=== PATIENT | male | born 1940 | race Caucasian/White ===

== ENCOUNTER 2017-09-17 06:51 | Day surgery (SDC) | payer MEDICARE, OTHER ==
[~2017-09-17 06:51] MED LIST: Lactated Ringers 1,000 ML IV SCH; Lidocaine 1%/Sod Bicarbonate in NS 8.4% 1 ML Syringe IV PRN; Sodium Chloride 0.9% 10 ML Syringe FLUSH PRN
--- NOTE | 2017-09-17 07:37 | PCM.PREANE ---
Preanesthetic Assessment - Anesthesia/Transfusion/Family Hx Anesthesia History: Prior Anesthesia Without Reaction Family History of Anesthesia Reaction: No Transfusion History: Prior Transfusion Without Reaction - Review of Systems General: No Symptoms Pulmonary: No Symptoms Cardiovascular: No Symptoms Gastrointestinal: Abdominal Pain Neurological: Numbness (hands) Other: Reports: Easy Bruising, Diabetes (152 this am check) - Physical Assessment NPO Status Date: 09/16/17 NPO Status Time: 22:30 O2 Sat by Pulse Oximetry: 94 Respiratory Rate: 16 Vital Signs: Last Vital Signs Temp 36.9 C 09/17/17 07:00 Pulse 64 09/17/17 07:00 Resp 16 09/17/17 07:00 BP 145/58 H 09/17/17 07:00 Pulse Ox 94 L 09/17/17 07:00 Height: 1.75 m Weight: 85.275 kg ASA Class: 3 Mental Status: Alert & Oriented x3 Airway Class: Mallampati = 1 Dentition: Reports: Normal Dentition, Missing Tooth/Teeth Thyro-Mental Finger Breadths: 3 Mouth Opening Finger Breadths: 3 ROM/Head Extension: Full Lungs: Clear to Auscultation, Normal Respiratory Effort Cardiovascular: Regular Rate, Regular Rhythm - Allergies Allergies/Adverse Reactions: Allergies Allergy/AdvReac Type Severity Reaction Status Date / Time niacin Allergy Hives Verified 09/16/17 15:56 [From Niaspan Extended-Release] quinine Allergy Anaphylactic Verified 09/16/17 15:56 Shock angiogram dye Allergy Anaphylactic Uncoded 09/16/17 15:56 Shock shellfish Allergy Swelling Uncoded 09/16/17 15:56 - Blood Blood Available: No Product(s) Available: None - Anesthesia Plan Pre-Op Medication Ordered: Beta Roxy Beta Roxy: Other (Coreg) Med Last Dose Date: 09/17/17 Med Last Dose Time: 05:30 - Acknowledgements Anesthesia Type Planned: MAC Pt an Appropriate Candidate for the Planned Anesthesia: Yes Alternatives and Risks of Anesthesia Discussed w Pt/Guardian: Yes Pt/Guardian Understands and Agrees with Anesthesia Plan: Yes PreAnesthesia Questionnaire HEENT History: Reports: Cataract Cardiovascular History: Reports: CAD, High Cholesterol, Hypertension, Stents, Other (See Below) Other Cardiovascular History: peripheral artery disease Respiratory History: Reports: None Gastrointestinal History: Reports: GERD, Hiatal Hernia, Other (See Below) Other Gastrointestinal History: hematochezia, rectal pain Genitourinary History: Reports: None 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 Other Musculoskeletal History: low back pain, lumbar degnerative disc disease, left hand fracture Neurological History: Reports: Other (See Below) Other Neuro History: cerebral vascular disease Psychiatric History: Reports: None Endocrine/Metabolic History: Reports: Diabetes, Type II Hematologic History: Reports: None Immunologic History: Reports: None Oncologic (Cancer) History: Reports: None Dermatologic History: Reports: None - Past Surgical History Head Surgeries/Procedures: Reports: None HEENT Surgical History: Reports: Adenoidectomy, Cataract Surgery, Naso-Sinus Surgery, Tonsillectomy Other HEENT Surgeries/Procedures: Detached Retina-left eye Cardiovascular Surgical History: Reports: Coronary Artery Bypass Other Cardiovascular Surgeries/Procedures: x5 stents Respiratory Surgical History: Reports: None GI Surgical History: Reports: Colonoscopy, EGD Female Surgical History: Reports: Breast Implant Male Surgical History: Reports: None Endocrine Surgical History: Reports: None Neurological Surgical History: Reports: None Oncologic Surgical History: Reports: None Dermatological Surgical History: Reports: None - SUBSTANCE USE Smoking Status *Q: Former Smoker Second Hand Smoke Exposure: No Days Per Week of Alcohol Use: 0 Recreational Drug Use History: No - HOME MEDS Home Medications: Home Meds Carvedilol 12.5 mg PO BID 03/28/15 [History] Clopidogrel [Plavix] 75 mg PO DAILY 03/28/15 [History] Colesevelam HCl [Welchol] 1,250 mg PO BID 03/28/15 [History] Flaxseed Oil [Flaxseed] 1,000 mg PO DAILY 03/28/15 [History] Fluticasone/Salmeterol [Advair Diskus 250-50] 1 puff INH BID 03/28/15 [History] Furosemide 40 mg PO DAILY 03/28/15 [History] Isosorbide Mononitrate [Isosorbide Mononitrate ER] 60 mg PO BID 03/28/15 [ History] Lisinopril 20 mg PO DAILY 03/28/15 [History] Pantoprazole [ProTONIX] 40 mg PO DAILY PRN 03/28/15 [History] atorvaSTATin [Lipitor] 80 mg PO DAILY 03/28/15 [History] glipiZIDE [Glipizide ER] 10 mg PO BEDTIME 03/28/15 [History] Acetaminophen/Diphenhydramine [Tylenol Pm Ex-Strength Caplet] 2 tab PO BEDTIME 09/16/17 [History] Aspirin [Halfprin] 81 mg PO DAILY 09/16/17 [History] Insuln Asp Prot/Insulin Aspart [NovoLOG Mix 70-30] 25 units SQ BID 09/16/17 [ History] Insuln Asp Prot/Insulin Aspart [NovoLOG Mix 70-30] 50 units SQ BEDTIME 09/16/17 [History] Melatonin 10 mg PO BEDTIME 09/16/17 [History] Nitroglycerin [Nitrostat] 0.4 mg SL Q5M PRN 09/16/17 [History] amLODIPine [Norvasc] 2.5 mg PO DAILY 09/16/17 [History] - CURRENT (IN HOUSE) MEDS Current Meds: Current Medications Lactated Ringer's (Ringers, Lactated) 1,000 mls @ 125 mls/hr IV ASDIRECTED RILEY Stop: 09/17/17 18:00 Last Admin: 09/17/17 07:15 Dose: 125 mls/hr Lidocaine/Sodium Bicarbonate (Buffered Lidocaine 1% In Ns 8.4%) 0.25 ml IV ONETIME PRN PRN Reason: Prior to IV Start Stop: 09/17/17 18:00 Last Admin: 09/17/17 07:15 Dose: 0.25 ml Sodium Chloride (Saline Flush) 10 ml FLUSH ASDIRECTED PRN PRN Reason: Keep Vein Open Stop: 09/17/17 18:00
--- NOTE | 2017-09-17 07:39 | PCM.HP ---
H&P History of Present Illness - General Date of Service: 09/17/17 Source of Information: Patient History Limitations: Reports: No Limitations - History of Present Illness Initial Comments - Free Text/Narative: 77 year old male with hematochezia and rectal pain x 6 months. His last colonoscopy was in 2009 and was normal. He has no family history of colon cancer. He has chronic stable CAD with cardiology following. He has no chest pain. His last cardiac stenting was in 2012. His latest echocardiogram was in 2015 and shows preserved EF 60-65%. - Related Data Allergies/Adverse Reactions: Allergies Allergy/AdvReac Type Severity Reaction Status Date / Time niacin Allergy Hives Verified 09/16/17 15:56 [From Niaspan Extended-Release] quinine Allergy Anaphylactic Verified 09/16/17 15:56 Shock angiogram dye Allergy Anaphylactic Uncoded 09/16/17 15:56 Shock shellfish Allergy Swelling Uncoded 09/16/17 15:56 Home Medications: Home Meds Carvedilol 12.5 mg PO BID 03/28/15 [History] Clopidogrel [Plavix] 75 mg PO DAILY 03/28/15 [History] Colesevelam HCl [Welchol] 1,250 mg PO BID 03/28/15 [History] Flaxseed Oil [Flaxseed] 1,000 mg PO DAILY 03/28/15 [History] Fluticasone/Salmeterol [Advair Diskus 250-50] 1 puff INH BID 03/28/15 [History] Furosemide 40 mg PO DAILY 03/28/15 [History] Isosorbide Mononitrate [Isosorbide Mononitrate ER] 60 mg PO BID 03/28/15 [ History] Lisinopril 20 mg PO DAILY 03/28/15 [History] Pantoprazole [ProTONIX] 40 mg PO DAILY PRN 03/28/15 [History] atorvaSTATin [Lipitor] 80 mg PO DAILY 03/28/15 [History] glipiZIDE [Glipizide ER] 10 mg PO BEDTIME 03/28/15 [History] Acetaminophen/Diphenhydramine [Tylenol Pm Ex-Strength Caplet] 2 tab PO BEDTIME 09/16/17 [History] Aspirin [Halfprin] 81 mg PO DAILY 09/16/17 [History] Insuln Asp Prot/Insulin Aspart [NovoLOG Mix 70-30] 25 units SQ BID 09/16/17 [ History] Insuln Asp Prot/Insulin Aspart [NovoLOG Mix 70-30] 50 units SQ BEDTIME 09/16/17 [History] Melatonin 10 mg PO BEDTIME 09/16/17 [History] Nitroglycerin [Nitrostat] 0.4 mg SL Q5M PRN 09/16/17 [History] amLODIPine [Norvasc] 2.5 mg PO DAILY 09/16/17 [History] Past Medical History HEENT History: Reports: Cataract Cardiovascular History: Reports: CAD, High Cholesterol, Hypertension, Stents, Other (See Below) Other Cardiovascular History: peripheral artery disease Respiratory History: Reports: None Gastrointestinal History: Reports: GERD, Hiatal Hernia, Other (See Below) Other Gastrointestinal History: hematochezia, rectal pain Genitourinary History: Reports: None 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 Other Musculoskeletal History: low back pain, lumbar degnerative disc disease, left hand fracture Neurological History: Reports: Other (See Below) Other Neuro History: cerebral vascular disease Psychiatric History: Reports: None Endocrine/Metabolic History: Reports: Diabetes, Type II Hematologic History: Reports: None Immunologic History: Reports: None Oncologic (Cancer) History: Reports: None Dermatologic History: Reports: None - Past Surgical History Head Surgeries/Procedures: Reports: None HEENT Surgical History: Reports: Adenoidectomy, Cataract Surgery, Naso-Sinus Surgery, Tonsillectomy Other HEENT Surgeries/Procedures: Detached Retina-left eye Cardiovascular Surgical History: Reports: Coronary Artery Bypass Other Cardiovascular Surgeries/Procedures: x5 stents Respiratory Surgical History: Reports: None GI Surgical History: Reports: Colonoscopy, EGD Female Surgical History: Reports: Breast Implant Male Surgical History: Reports: None Endocrine Surgical History: Reports: None Neurological Surgical History: Reports: None Oncologic Surgical History: Reports: None Dermatological Surgical History: Reports: None Social & Family History - Tobacco Use Smoking Status *Q: Former Smoker Years of Tobacco use: 9 Used Tobacco, but Quit: Yes Month Tobacco Last Used: 04/1969 Second Hand Smoke Exposure: No - Alcohol Use Days Per Week of Alcohol Use: 0 - Recreational Drug Use Recreational Drug Use: No H&P Review of Systems - Review of Systems: Review Of Systems: See Below Pulmonary: Reports: Shortness of Breath Cardiovascular: Reports: No Symptoms Gastrointestinal: Reports: Hematochezia Genitourinary: Reports: No Symptoms Exam - Exam Exam: See Below - Vital Signs Vital Signs: Last Vital Signs Temp 36.9 C 09/17/17 07:00 Pulse 64 09/17/17 07:00 Resp 16 09/17/17 07:00 BP 145/58 H 09/17/17 07:00 Pulse Ox 94 L 09/17/17 07:00 Weight: 85.275 kg - Exam General: Alert, Oriented Lungs: Clear to Auscultation, Normal Respiratory Effort Cardiovascular: Regular Rate, Regular Rhythm GI/Abdominal Exam: Normal Bowel Sounds, Soft, Non-Tender *Q Meaningful Use (ADM) - VTE *Q VTE Criteria *Q: - Stroke *Q Stroke Criteria *Q: - AMI *Q AMI Criteria *Q: - Problem List (1) Hematochezia SNOMED Code(s): 450403968 ICD Code: K92.1 - MELENA Status: Acute Current Visit: Yes (2) Rectal pain SNOMED Code(s): 98623781 ICD Code: K62.89 - OTHER SPECIFIED DISEASES OF ANUS AND RECTUM Status: Acute Current Visit: Yes Problem List Initiated/Reviewed/Updated: Yes Orders Last 24hrs: Active Orders 24 hr Category Date Time Status Peripheral IV Care [RC] . DIRECTED Care 09/17/17 00:01 Active Verify Patient Consent Obtain [RC] ASDIRECTED Care 09/17/17 00:01 Active Lactated Ringers [Ringers, Lactated] 1,000 ml Med 09/17/17 00:01 Active IV ASDIRECTED Lidocaine 1%/Sod Bicarbonate [Buffered Lidocaine 1% in Med 09/17/17 00:01 Active NS 8.4%] 0.25 ml IV ONETIME PRN Sodium Chloride 0.9% [Saline Flush] Med 09/17/17 00:01 Active 10 ml FLUSH ASDIRECTED PRN Medication Administration Instruction [OM.PC] Routine Oth 09/17/17 00:01 Ordered Peripheral IV Insertion Adult [OM.PC] Routine Oth 09/17/17 00:01 Ordered Medication Orders Lactated Ringer's (Ringers, Lactated) 1,000 mls @ 125 mls/hr IV ASDIRECTED RILEY Stop: 09/17/17 18:00 Last Admin: 09/17/17 07:15 Dose: 125 mls/hr Lidocaine/Sodium Bicarbonate (Buffered Lidocaine 1% In Ns 8.4%) 0.25 ml IV ONETIME PRN PRN Reason: Prior to IV Start Stop: 09/17/17 18:00 Last Admin: 09/17/17 07:15 Dose: 0.25 ml Sodium Chloride (Saline Flush) 10 ml FLUSH ASDIRECTED PRN PRN Reason: Keep Vein Open Stop: 09/17/17 18:00 Assessment/Plan Comment:: Proceed with diagnostic colonoscopy for evaluation of hematochezia and rectal pain. Risks and benefits discussed. Risks include perforation, inability to reach cecum and risks of anesthesia.
[2017-09-17] MEDS ORDERED: Propofol 200 MG/20 ML SDV ONE (08:07)
[2017-09-17] MEDS ORDERED: fentaNYL 100 MCG/2 ML SDV ONE (08:07)
[2017-09-17] MEDS ORDERED: Lidocaine 1% 4 ML ONE (08:09)
--- NOTE | 2017-09-17 08:15 | PCM.OPNOTE ---
- General Post-Op/Procedure Note Date of Surgery/Procedure: 09/17/17 Operative Procedure(s): Colonoscopy with cold forceps biopsy Findings: 3 mm ascending colon polyp, internal hemorrhoids Pre Op Diagnosis: Hematochezia, Proctodynia Post-Op Diagnosis: 3 mm ascending colon polyp, internal hemorrhoids Anesthesia Technique: MAC Primary Surgeon: Dave Rodriguez Anesthesia Provider: Olegario Mares EBL in mLs: 5 Complications: None Condition: Good Free Text/Narrative:: After patient gave verbal and written consent he was placed on blood pressure and pulse ox monitoring. He was given iv sedation which he tolerated well. The olympus colonoscope was inserted per rectum and advanced to the cecum without difficulty. The ileocecal valve and appendiceal orfice were imaged documenting cecal intubation. The colonoscope was slowly withdrawn. The prep was good. The views were good. A small 3 mm sessile ascending colon polyp was noted and removed with cold forceps biopsy. This was retrieved. There was good hemostasis. The scope was retroflexed in the rectum and internal hemorrhoids were noted. The patient tolerated the procedure well, there were no complications.
[2017-09-17 08:21] VITALS: BP 123/54
[2017-09-17] MEDS ORDERED: ePHEDrine 50 MG/ML SDV ONE (08:26)
== END 2017-09-17 08:47 | disposition home or self-care (01) ==
LOC: JD.SDS 06:51
PROVIDERS: ATTEND Family Medicine
DX: D12.2 Benign neoplasm of ascending colon (principal); K64.8 Other hemorrhoids; I25.10 Atherosclerotic heart disease of native coronary artery without angina pectoris; I10 Essential (primary) hypertension; E11.9 Type 2 diabetes mellitus without complications; I73.9 Peripheral vascular disease, unspecified; E78.00 Pure hypercholesterolemia, unspecified; Z88.8 Allergy status to other drugs, medicaments and biological substances; Z91.041 Radiographic dye allergy status; Z91.013 Allergy to seafood; Z79.82 Long term (current) use of aspirin; Z79.4 Long term (current) use of insulin; Z79.899 Other long term (current) drug therapy; Z90.49 Acquired absence of other specified parts of digestive tract; Z95.5 Presence of coronary angioplasty implant and graft; Z87.891 Personal history of nicotine dependence
CPT/HCPCS: 45380; J3010; J7120; 00810; 88305; J2704

== ENCOUNTER 2018-03-25 20:27 | Emergency (ER) | payer MEDICARE, OTHER ==
[2018-03-25 20:33] VITALS: BP 161/6
[2018-03-26] MEDS ORDERED: Orphenadrine 100 MG Tab.ER PO STA (00:49)
--- NOTE | 2018-03-26 00:56 | EDM.PDOC ---
ED HPI GENERAL MEDICAL PROBLEM - General Chief Complaint: Cardiovascular Problem Stated Complaint: [facility] Time Seen by Provider: 03/25/18 21:49 Source of Information: Reports: Patient, Family (Son) History Limitations: Reports: No Limitations - History of Present Illness INITIAL COMMENTS - FREE TEXT/NARRATIVE: The patient states that he had 7 teeth extracted, followed by maxillary bone shaping and 5 dental implants placed this past 03/18/2018. The patient is on Plavix, which he did not hold prior to the procedure, although he did hold this past Wednesday and Wednesday, 03/19/2018 and 03/20/2018. He resume the Plavix 03/21/2018. The patient reports increased urine output this past Wednesday, Wednesday, and Wednesday, 03/21/2018 through 03/23/2018, but none yesterday or today. He acknowledges that he had increased his fluid intake around that time, as requested by his oral surgeon. The patient states that he developed bilateral thigh cramps yesterday and today. He called the paramedics, and for reasons unclear, they checked an ECG even though the patient was not complaining of chest pain, dyspnea, or palpitations. According to the patient, the paramedics found some problem with the ECG and recommended that he come to the ED. The patient has a history of insulin requiring diabetes. Because he has been on a liquid diet since his oral surgery, he has decreased his insulin dosage. No recent fever, nausea, vomiting, or diarrhea. He reports recent constipation secondary to taking narcotic pain relievers. He also reports that he is on an antibiotic, but does not know its name. The patient's PCP is Dr. Silvio Culver. - Related Data Allergies Allergy/AdvReac Type Severity Reaction Status Date / Time niacin Allergy Hives Verified 09/16/17 15:56 [From Niaspan Extended-Release] quinine Allergy Anaphylactic Verified 09/16/17 15:56 Shock angiogram dye Allergy Anaphylactic Uncoded 09/16/17 15:56 Shock shellfish Allergy Swelling Uncoded 09/16/17 15:56 Home Meds: Home Meds Carvedilol 12.5 mg PO BID 03/28/15 [History] Clopidogrel [Plavix] 75 mg PO DAILY 03/28/15 [History] Colesevelam HCl [Welchol] 1,875 mg PO BID 03/28/15 [History] Flaxseed Oil [Flaxseed] 1,000 mg PO DAILY 03/28/15 [History] Fluticasone/Salmeterol [Advair Diskus 250-50] 1 puff INH BID 03/28/15 [History] Furosemide 40 mg PO DAILY 03/28/15 [History] Isosorbide Mononitrate [Isosorbide Mononitrate ER] 60 mg PO BID 03/28/15 [ History] Lisinopril 20 mg PO DAILY 03/28/15 [History] Pantoprazole [ProTONIX] 40 mg PO DAILY PRN 03/28/15 [History] atorvaSTATin [Lipitor] 80 mg PO DAILY 03/28/15 [History] glipiZIDE [Glipizide ER] 10 mg PO BEDTIME 03/28/15 [History] Acetaminophen/Diphenhydramine [Tylenol Pm Ex-Strength Caplet] 2 tab PO BEDTIME 09/16/17 [History] Aspirin [Halfprin] 81 mg PO DAILY 09/16/17 [History] Insuln Asp Prot/Insulin Aspart [NovoLOG Mix 70-30] 25 units SQ BID 09/16/17 [ History] Insuln Asp Prot/Insulin Aspart [NovoLOG Mix 70-30] 50 units SQ BEDTIME 09/16/17 [History] Melatonin 10 mg PO BEDTIME 09/16/17 [History] Nitroglycerin [Nitrostat] 0.4 mg SL Q5M PRN 09/16/17 [History] amLODIPine [Norvasc] 2.5 mg PO DAILY 09/16/17 [History] Triamcinolone Acetonide [Triamcinolone Acetonide 0.1% Crm] 1 dose TOP BID [History] Orphenadrine [Norflex] 1 tab PO Q12H PRN #10 tab.er 03/26/18 [Rx] Past Medical History HEENT History: Reports: Impaired Vision Other HEENT History: Wears glasses Cardiovascular History: Reports: CAD, High Cholesterol, Hypertension, DC (2011) , PVD Gastrointestinal History: Reports: GERD, Hiatal Hernia Musculoskeletal History: Reports: Back Pain, Chronic (lumbar DDD), Fracture ( left hand) Endocrine/Metabolic History: Reports: Diabetes, Type II - Past Surgical History HEENT Surgical History: Reports: Adenoidectomy, Cataract Surgery (bilateral), Detached Retina (left), Naso-Sinus Surgery, Oral Surgery, Tonsillectomy Cardiovascular Surgical History: Reports: Coronary Artery Bypass (x 4 vessel 1995), Coronary Artery Stent (x 5) GI Surgical History: Reports: Colonoscopy, EGD Musculoskeletal Surgical History: Reports: Arthroscopic Knee (left knee) Social & Family History - Tobacco Use Smoking Status *Q: Former Smoker Month/Year Tobacco Last Used: Quit 1968 - Alcohol Use Alcohol Use History: Yes Alcohol Use Frequency: Socially - Recreational Drug Use Recreational Drug Use: No - Living Situation & Occupation Living situation: Reports: , with Spouse Occupation: Retired ED ROS GENERAL - Review of Systems Review Of Systems: ROS reveals no pertinent complaints other than HPI. ED EXAM, GENERAL - Physical Exam Exam: See Below Exam Limited By: No Limitations General Appearance: Alert, WD/WN, No Apparent Distress Eye Exam: Bilateral Eye: Normal Inspection Ears: Normal External Exam, Hearing Grossly Normal Nose: Normal Inspection, No Blood Throat/Mouth: Normal Inspection, Normal Lips, Normal Voice, No Airway Compromise Head: Atraumatic, Normocephalic Neck: Full Range of Motion, Other (Ecchymosis noted to the anterior neck, extending to the upper midline chest) Respiratory/Chest: No Respiratory Distress, Lungs Clear, Normal Breath Sounds, No Accessory Muscle Use Cardiovascular: Normal Peripheral Pulses, Regular Rate, Rhythm, No Gallop, No JVD, No Murmur, No Rub Peripheral Pulses: 4+: Radial (L), Radial (R) GI/Abdominal: Normal Bowel Sounds, Soft, Non-Tender, No Organomegaly, No Distention, No Abnormal Bruit, No Mass (Male) Exam: Deferred Rectal (Males) Exam: Deferred Back Exam: Normal Inspection, Full Range of Motion, NT Extremities: Normal Inspection, Normal Range of Motion, Normal Capillary Refill , Other (1+ bilateral pretibial edema) Neurological: Alert, Oriented, Normal Cognition, No Motor/Sensory Deficits Psychiatric: Normal Affect Skin Exam: Warm, Dry, Intact, Normal Color, No Rash EKG INTERPRETATION EKG Date: 03/25/18 Time: 22:08 Rhythm: NSR Rate (Beats/Min): 61 [place]: Normal P-Wave: Present (1st degree AVB) QRS: Wide (Nonspecific intraventricular conduction delay) ST-T: Normal QT: Normal Comparison: No Change (03/28/2015) Course - Vital Signs Last Recorded V/S: Last Vital Signs Temp 36.6 C 03/25/18 20:31 Pulse 62 03/25/18 20:31 Resp 16 03/25/18 20:31 BP 161/6 H 03/25/18 20:31 Pulse Ox 95 03/25/18 20:31 - Orders/Labs/Meds Orders: Active Orders 24 hr Category Date Time Status EKG Documentation Completion [RC] STAT Care 03/25/18 22:03 Active UA W/MICROSCOPIC [URIN] Stat Lab 03/25/18 22:20 Ordered Labs: Laboratory Tests 03/25/18 03/25/18 03/25/18 Range/Units 22:18 22:18 22:20 WBC 10.88 H (4.23-9.07) K/mm3 RBC 4.15 L (4.63-6.08) M/mm3 Hgb 13.1 L (13.7-17.5) gm/L Hct 39.5 L (40.1-51.0) % MCV 95.2 H (79.0-92.2) fl MCH 31.6 (25.7-32.2) pg MCHC 33.2 (32.2-35.5) g/dl RDW Std Deviation 49.3 H (35.1-43.9) fL Plt Count 283 (163-337) K/mm3 MPV 10.6 (9.4-12.3) fl Neutrophils % (Manual) 61 H (40-60) % Band Neutrophils % 0 (0-10) % Lymphocytes % (Manual) 24 (20-40) % Atypical Lymphs % 0 % Monocytes % (Manual) 13 H (2-10) % Eosinophils % (Manual) 1 (0.8-7.0) % Basophils % (Manual) 0 L (0.2-1.2) Myelocytes % 1 Toxic Granulation Few Platelet Estimate Adequate Plt Morphology Comment Normal Poikilocytosis 1+ slight Anisocytosis 1+ slight Microcytosis 1+ slight Macrocytosis 1+ slight Target Cells 1+ slight Tear Drop Cells 1+ slight Ovalocytes 1+ slight RBC Morph Comment Abnormal Sodium 138 (136-145) mEq/L Potassium 4.4 (3.5-5.1) mEq/L Chloride 104 (98-107) mEq/L Carbon Dioxide 29 (21-32) mEq/L Anion Gap 9.4 (5-15) BUN 23 H (7-18) mg/dL Creatinine 1.1 (0.7-1.3) mg/dL Est Cr Clr Drug Dosing 57.13 mL/min Estimated GFR (MDRD) > 60 (>60) mL/min BUN/Creatinine Ratio 20.9 H (14-18) Glucose 74 L (83-115) mg/dL Calcium 9.2 (8.5-10.1) mg/dL Magnesium 2.1 (1.8-2.4) mg/dl Total Bilirubin 0.4 (0.2-1.0) mg/dL AST 23 (15-37) U/L ALT 34 (16-63) U/L Alkaline Phosphatase 92 (46-116) U/L Troponin I 0.024 (0.00-0.056) ng/mL Total Protein 6.9 (6.4-8.2) g/dl Albumin 3.3 L (3.4-5.0) g/dl Globulin 3.6 gm/dL Albumin/Globulin Ratio 0.9 L (1-2) Urine Color Yellow (Yellow) Urine Appearance Clear (Clear) Urine pH 6.5 (5.0-8.0) Ur Specific [place] 1.020 (1.005-1.030) Urine Protein Negative (Negative) Urine Glucose (UA) Negative (Negative) Urine Ketones Negative (Negative) Urine Occult Blood Trace-intact H (Negative) Urine Nitrite Negative (Negative) Urine Bilirubin Negative (Negative) Urine Urobilinogen 0.2 (0.2-1.0) Ur Leukocyte Esterase Negative (Negative) Urine RBC 0-5 (0-5) /hpf Urine WBC 0-5 (0-5) /hpf Ur Epithelial Cells 0-5 (0-5) /hpf Urine Bacteria Not seen (FEW) /hpf Urine Mucus Not seen (FEW) /hpf Meds: Medications Discontinued Medications Generic Name Dose Route Start Last Admin Trade Name Freq PRN Reason Stop Dose Admin Orphenadrine Citrate 100 mg 03/26/18 00:49 03/26/18 00:54 Norflex PO 03/26/18 00:50 100 mg ONETIME STA Administration - Re-Assessments/Exams Free Text/Narrative Re-Assessment/Exam: 03/26/18 00:49 Accu-Chek shortly after arrival was 67. The patient was given juice. Test results discussed with the patient and his son. Zaid's workup is unremarkable. No significant electrolyte abnormalities. The patient's ECG, the main reason why he was sent to the ED by EMS, is grossly normal, with the exception of a first-degree AV block. There are no ischemic changes, and his QTc is within normal limits. I don't know what the paramedics saw, but I do not see anything of concern here. It is commonly believed that muscle cramps are due to an electrolyte abnormality , however, there is no evidence for that, and this patient is a good example. His electrolytes are normal, yet he has muscle cramps. I am recommending that we give him a trial of Norflex, to see if that helps. The patient is agreeable. Departure - Departure Time of Disposition: 00:51 Disposition: Home, Self-Care 01 Condition: Good Clinical Impression: Thigh cramp - Discharge Information Prescriptions: Orphenadrine [Norflex] 1 tab PO Q12H PRN #10 tab.er PRN Reason: Muscle Spasm Instructions: Leg Cramps Referrals: Silvio Culver Jr, MD [Primary Care Provider] - Forms: ED Department Discharge Additional Instructions: You were seen in the emergency room for thigh cramps, an abnormal ECG by the paramedics, and increased urine output earlier this week. Workup in the ER included blood work, a urinalysis, and an ECG. Your entire workup was unremarkable. Your ECG, while not completely normal, has no concerning findings. Your electrolytes are normal. You are not dehydrated. You have not suffered a heart attack. You do not have a urinary tract infection. The cause of muscle cramps is not known, but does not appear to be related to any significant medical abnormality. You have been started on the muscle relaxant Norflex. A prescription for Norflex has been sent to the [facility] located in the [employer] store. Take one tablet every 12 hours, as prescribed. You may also take [id number] ibuprofen as needed for discomfort. Follow-up with your PCP, Dr. Silvio Culver, this coming week. If any other problems, please do not hesitate to return to the ER. - My Orders Last 24 Hours: My Active Orders 03/25/18 22:03 EKG Documentation Completion [RC] STAT 03/25/18 22:20 UA W/MICROSCOPIC [URIN] Stat - Assessment/Plan Last 24 Hours: My Active Orders 03/25/18 22:03 EKG Documentation Completion [RC] STAT 03/25/18 22:20 UA W/MICROSCOPIC [URIN] Stat
== END 2018-03-26 01:04 | disposition home or self-care (01) ==
LOC: JD.ED 20:27 → SUPCPDRO 20:27 → JD.ED 03-26 01:04
DX: R25.2 Cramp and spasm (principal); E78.00 Pure hypercholesterolemia, unspecified; I10 Essential (primary) hypertension; I25.2 Old myocardial infarction; K21.9 Gastro-esophageal reflux disease without esophagitis; E11.9 Type 2 diabetes mellitus without complications; Z88.1 Allergy status to other antibiotic agents; Z91.013 Allergy to seafood; Z88.8 Allergy status to other drugs, medicaments and biological substances; Z91.041 Radiographic dye allergy status; Z79.4 Long term (current) use of insulin; Z79.899 Other long term (current) drug therapy; Z87.891 Personal history of nicotine dependence
CPT/HCPCS: 36415; 80053; 81001; 83735; 84484; 85007; 85027; 93005; 99285; A9270; 82962

== ENCOUNTER 2021-05-08 07:16 | Emergency (ER) | payer MEDICARE, OTHER ==
--- NOTE | 2021-05-08 07:39 | EDM.PDOC ---
ED HPI GENERAL MEDICAL PROBLEM - General Chief Complaint: Neuro Symptoms/Deficits Stated Complaint: SLIGHT HEADACHE X 2DAYS /LOSS OF BALANCE TODAY Time Seen by Provider: 05/08/21 07:27 Source of Information: Reports: Patient History Limitations: Reports: No Limitations - History of Present Illness INITIAL COMMENTS - FREE TEXT/NARRATIVE: 81-year-old male presents to the ED feeling off balance with reported diffuse mild headache for the last 2 days. No known head trauma. History suggest that he is listing to both sides not to one side. Hard to get a good history of vertigo or spinning sensation. He states he just feels off balance. 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 Prior to that he just used to use medications. This morning he awoke with diaphoresis and the bed disheveled. He checked his blood sugar was 57. The history would suggest that he likely experienced a hypoglycemic episode this morning. No nausea or vomiting. He did take all of his normal medications this morning. This includes insulin. Appetite has been good. No diarrhea no nausea or vomiting. No visual acuity changes. Patient wears glasses most of the time with tinted lenses as his eyes are very sensitive to light. Onset: Gradual, Unknown/Unsure (Patient has felt off balance for the last 2 to 3 days.) Onset Date: 05/05/21 Duration: Day(s):, Waxing/Waning Location: Reports: Generalized (Generalized feeling of feeling off balance having to take an extra step but no definitive evidence of vertigo.) Quality: Reports: Other (With mild headache) Severity: Moderate Improves with: Reports: Rest Worsens with: Reports: Other (Symptoms are only noticed while walking. At rest he is fine.) Context: Denies: Activity, Exercise, Lifting, Sick Contact, Trauma, Other Associated Symptoms: Reports: Malaise. Denies: No Other Symptoms, Confusion, Chest Pain, Cough, cough w sputum, Diaphoresis, Fever/Chills, Headaches, Loss of Appetite, Nausea/Vomiting, Rash, Seizure, Shortness of Breath, Syncope, Weakness Treatments MUSICAL THERAPIST: Reports: Other (see below) - Related Data Allergies Allergy/AdvReac Type Severity Reaction Status Date / Time niacin Allergy Hives Verified 05/08/21 07:26 [From Niaspan Extended-Release] quinine Allergy Anaphylactic Verified 05/08/21 07:26 Shock angiogram dye Allergy Anaphylactic Uncoded 09/16/17 15:56 Shock shellfish Allergy Swelling Uncoded 09/16/17 15:56 Home Meds: Home Meds Clopidogrel [Plavix] 75 mg PO DAILY 03/28/15 [History] Colesevelam HCl [Welchol] 1,875 mg PO BID 03/28/15 [History] Flaxseed Oil [Flaxseed] 1,000 mg PO DAILY 03/28/15 [History] Fluticasone/Salmeterol [Advair Diskus 250-50] 1 puff INH BID 03/28/15 [History] Furosemide 40 mg PO DAILY 03/28/15 [History] Isosorbide Mononitrate [Isosorbide Mononitrate ER] 60 mg PO BID 03/28/15 [History] Lisinopril 20 mg PO DAILY 03/28/15 [History] Pantoprazole [ProTONIX] 40 mg PO DAILY PRN 03/28/15 [History] atorvaSTATin [Lipitor] 80 mg PO DAILY 03/28/15 [History] carvediloL [Carvedilol] 12.5 mg PO BID 03/28/15 [History] glipiZIDE [Glipizide ER] 10 mg PO BEDTIME 03/28/15 [History] Acetaminophen/Diphenhydramine [Tylenol Pm Ex-Strength Caplet] 2 tab PO BEDTIME 09/16/17 [History] Aspirin [Halfprin] 81 mg PO DAILY 09/16/17 [History] Insuln Asp Prot/Insulin Aspart [NovoLOG Mix 70-30] 25 units SQ BID 09/16/17 [History] Insuln Asp Prot/Insulin Aspart [NovoLOG Mix 70-30] 50 units SQ BEDTIME 09/16/17 [History] Nitroglycerin [Nitrostat] 0.4 mg SL Q5M PRN 09/16/17 [History] amLODIPine [Norvasc] 2.5 mg PO DAILY 09/16/17 [History] Fish Oil/[place]-3 Fatty Acids [Fish Oil 1,000 MG] 1 each PO DAILY 05/08/21 [History] Furosemide [Lasix] 20 mg PO DAILY #30 tab 05/08/21 [Rx] Ranolazine [Ranexa] 500 mg PO BID 05/08/21 [History] Past Medical History HEENT History: Reports: Impaired Vision Other HEENT History: Wears glasses Cardiovascular History: Reports: CAD, High Cholesterol, Hypertension, [place], PVD, Stents (Patient has 5 coronary artery stents in place. He believes he has been on Plavix since about 2010.) Other Cardiovascular History: peripheral artery disease Respiratory History: Reports: None Gastrointestinal History: Reports: GERD, Hiatal Hernia Other Gastrointestinal History: hematochezia, rectal pain Genitourinary History: Reports: None BALLOON SANDER History: Reports: None Musculoskeletal History: Reports: Back Pain, Chronic, Fracture Other Musculoskeletal History: low back pain, lumbar degnerative disc disease, left hand fracture Neurological History: Reports: Other (See Below) Other Neuro History: cerebral vascular disease Psychiatric History: Reports: None Endocrine/Metabolic History: Reports: Diabetes, Type II Hematologic History: Reports: None Immunologic History: Reports: None Oncologic (Cancer) History: Reports: None Dermatologic History: Reports: None - Past Surgical History Head Surgeries/Procedures: Reports: None HEENT Surgical History: Reports: Adenoidectomy, Cataract Surgery, Detached Retina, Naso-Sinus Surgery, Oral Surgery, Tonsillectomy Cardiovascular Surgical History: Reports: Coronary Artery Bypass, Coronary Artery Stent Respiratory Surgical History: Reports: None GI Surgical History: Reports: Colonoscopy, EGD Male Surgical History: Reports: None Neurological Surgical History: Reports: None Musculoskeletal Surgical History: Reports: Arthroscopic Knee Oncologic Surgical History: Reports: None Dermatological Surgical History: Reports: None Social & Family History - Alcohol Use Alcohol Use History: Yes Days Per Week of Alcohol Use: 1 - Living Situation & Occupation Living situation: Reports: , with Spouse Occupation: Retired ED ROS GENERAL - Review of Systems Review Of Systems: See Below Constitutional: Reports: Malaise, Weakness, Fatigue. Denies: Fever, Chills, Decreased Appetite, Weight Loss HEENT: Reports: Glasses, Hearing Loss Respiratory: Reports: Shortness of Breath (Moderate hearing loss without use of hearing aids), Cough. Denies: Wheezing, Pleuritic Chest Pain Cardiovascular: Reports: Blood Pressure Problem, Dyspnea on Exertion, Lightheadedness (Occasionally.). Denies: Chest Pain (Occasional nonproductive cough), Claudication, Edema, Orthopnea Endocrine: Reports: Fatigue GI/Abdominal: Reports: No Symptoms : Reports: Frequency, Other Musculoskeletal: Reports: Neck Pain, Shoulder Pain, Back Pain (Nocturia x2-3), Joint Pain Skin: Reports: Bruising (Knees and hips at times.) Neurological: Reports: Dizziness (Feeling more off balance), Headache (Mild headache generalized for the last 2 days), Numbness, Tingling, Difficulty Walking. Denies: Confusion, Pre-Existing Deficit (Due to feeling off balance last couple of days. No falls), Syncope (Peripheral neuropathy both lower extremities), Tremors, Trouble Speaking, Weakness, Change in Speech Psychiatric: Reports: No Symptoms Hematologic/Lymphatic: Reports: No Symptoms Immunologic: Reports: No Symptoms ED EXAM, NEURO - Physical Exam Exam: See Below Exam Limited By: No Limitations General Appearance: Alert, WD/WN, No Apparent Distress, Other (Temperature is 36.4 degrees. Heart rate 66 and sinus. Respiratory rate of 16 with O2 sats of 93 to 94% room air.) Eye Exam: Bilateral Eye: Normal Inspection, PERRL Ears: Other Nose: Normal Inspection (Left ear canal has a good deal of cerumen inside it.), Normal Mucosa Throat/Mouth: Normal Inspection, Normal Lips, Normal Oropharynx, Other. No: Normal Teeth Head Exam: Atraumatic, Normocephalic Neck: Normal Inspection, Full Range of Motion (With crepitus on lateral rotation.), Tender Lateral. No: Carotid Bruit, Other (Mild bilaterally) Respiratory/Chest: No Respiratory Distress, Lungs Clear, Normal Breath Sounds, No Accessory Muscle Use Cardiovascular: Normal Peripheral Pulses, Regular Rate, Rhythm, No Edema, No Gallop, No Murmur, No Rub GI/Abdominal: Normal Bowel Sounds, Soft, Non-Tender, No Organomegaly, No Distention, No Mass, Pelvis Stable Neurological: Alert, Normal Mood/Affect, Normal Dorsiflexion, CN II-XII Intact, Normal Plantar Flexion, Normal Gait, Normal Reflexes, No Motor/Sensory Deficits, Oriented x 3, Other (No pronator drift. Normal rapid alternating movements and [id number] evaluation) DTR: 2+: Bicep (R), Bicep (L), 3+: Patella (R), Patella (L) Back Exam: Normal Inspection. No: CVA Tenderness (L), CVA Tenderness (R) Extremities: Normal Inspection, Normal Range of Motion, Non-Tender, No Pedal Edema Psychiatric: Normal Affect, Normal Mood Skin Exam: Warm, Dry, Intact, Normal Color, No Rash #1 Interpretation EKG Date: 05/08/21 Time: 07:57 Rhythm: Other Rate (Beats/Min): 59 [place]: Normal P-Wave: Present (With first-degree AV block) QRS: Other (Incomplete left bundle branch block pattern. Near Q waves V1 V2 combined with old anteroseptal myocardial infarction) ST-T: Other (Diffuse repolarization abnormality) QT: Normal EKG Interpretation Comments: Abnormal ECG Course - Vital Signs Last Recorded V/S: Last Vital Signs Temp 36.4 C 05/08/21 07:38 Pulse 66 05/08/21 07:38 Resp BP Pulse Ox - Orders/Labs/Meds Orders: Active Orders 24 hr Category Date Time Status EKG Documentation Completion [RC] STAT Care 05/08/21 07:50 Active Ear Irrigation [RC] ASDIRECTED Care 05/08/21 07:50 Active Dextrose 5%-0.9% NaCl [Dextrose 5%-Normal Saline] 1,000 Med 05/08/21 07:45 Active ml IV ASDIRECTED Medication Orders Dextrose/Sodium Chloride (Dextrose 5%-Normal Saline) 1,000 mls @ 125 mls/hr IV ASDIRECTED RILEY Last Admin: 05/08/21 07:56 Dose: 125 mls/hr Documented by: KIMI Labs: Laboratory Tests 05/08/21 05/08/21 05/08/21 Range/Units 07:50 07:50 07:50 WBC 8.64 (4.23-9.07) K/mm3 RBC 4.16 L (4.63-6.08) M/mm3 Hgb 13.5 L (13.7-17.5) gm/dl Hct 40.1 (40.1-51.0) % MCV 96.4 H (79.0-92.2) fl MCH 32.5 H (25.7-32.2) pg MCHC 33.7 (32.2-35.5) g/dl RDW Std Deviation 52.4 H (35.1-43.9) fL Plt Count 200 D (163-337) K/mm3 MPV 11.5 (9.4-12.3) fl Neut % (Auto) 70.1 H (34.0-67.9) % Lymph % (Auto) 19.7 L (21.8-53.1) % [place] % (Auto) 8.2 (5.3-12.2) % Eos % (Auto) 1.7 (0.8-7.0) Baso % (Auto) 0.2 (0.1-1.2) % Neut # (Auto) 6.05 H (1.78-5.38) K/mm3 Lymph # (Auto) 1.70 (1.32-3.57) K/mm3 [place] # (Auto) 0.71 (0.30-0.82) K/mm3 Eos # (Auto) 0.15 (0.04-0.54) K/mm3 Baso # (Auto) 0.02 (0.01-0.08) K/mm3 Sodium 140 (136-145) mEq/L Potassium 4.5 (3.5-5.1) mEq/L Chloride 105 (98-107) mEq/L Carbon Dioxide 29 (21-32) mEq/L Anion Gap 10.5 (5-15) BUN 31 H (7-18) mg/dL Creatinine 1.3 (0.7-1.3) mg/dL Est Cr Clr Drug Dosing 46.08 mL/min Estimated GFR (MDRD) 53 (>60) mL/min BUN/Creatinine Ratio 23.8 H (14-18) Glucose 205 H (70-99) mg/dL Hemoglobin A1c 6.3 H ( - 5.6) % Calcium 8.7 (8.5-10.1) mg/dL Magnesium 2.0 (1.8-2.4) mg/dL Total Bilirubin 0.5 (0.2-1.0) mg/dL AST 27 (15-37) U/L ALT 30 (16-63) U/L Alkaline Phosphatase 72 (46-116) U/L Troponin I 0.051 (0.00-0.056) ng/mL C-Reactive Protein <0.2 (<1.0) mg/dL NT-Pro-B Natriuret Pep (0-450) pg/mL Total Protein 6.2 L (6.4-8.2) g/dl Albumin 3.2 L (3.4-5.0) g/dl Globulin 3.0 gm/dL Albumin/Globulin Ratio 1.1 (1-2) 07// Range/Units 07:50 WBC (4.23-9.07) K/mm3 RBC (4.63-6.08) M/mm3 Hgb (13.7-17.5) gm/dl Hct (40.1-51.0) % MCV (79.0-92.2) fl MCH (25.7-32.2) pg MCHC (32.2-35.5) g/dl RDW Std Deviation (35.1-43.9) fL Plt Count (163-337) K/mm3 MPV (9.4-12.3) fl Neut % (Auto) (34.0-67.9) % Lymph % (Auto) (21.8-53.1) % [place] % (Auto) (5.3-12.2) % Eos % (Auto) (0.8-7.0) Baso % (Auto) (0.1-1.2) % Neut # (Auto) (1.78-5.38) K/mm3 Lymph # (Auto) (1.32-3.57) K/mm3 [place] # (Auto) (0.30-0.82) K/mm3 Eos # (Auto) (0.04-0.54) K/mm3 Baso # (Auto) (0.01-0.08) K/mm3 Sodium (136-145) mEq/L Potassium (3.5-5.1) mEq/L Chloride (98-107) mEq/L Carbon Dioxide (21-32) mEq/L Anion Gap (5-15) BUN (7-18) mg/dL Creatinine (0.7-1.3) mg/dL Est Cr Clr Drug Dosing mL/min Estimated GFR (MDRD) (>60) mL/min BUN/Creatinine Ratio (14-18) Glucose (70-99) mg/dL Hemoglobin A1c ( - 5.6) % Calcium (8.5-10.1) mg/dL Magnesium (1.8-2.4) mg/dL Total Bilirubin (0.2-1.0) mg/dL AST (15-37) U/L ALT (16-63) U/L Alkaline Phosphatase (46-116) U/L Troponin I (0.00-0.056) ng/mL C-Reactive Protein (<1.0) mg/dL NT-Pro-B Natriuret Pep 889 H (0-450) pg/mL Total Protein (6.4-8.2) g/dl Albumin (3.4-5.0) g/dl Globulin gm/dL Albumin/Globulin Ratio (1-2) Meds: Medications Generic Name Dose Route Start Last Admin Trade Name Freq PRN Reason Stop Dose Admin Dextrose/Sodium Chloride 1,000 mls @ 125 mls/hr 05/08/21 07:45 05/08/21 07:56 Dextrose 5%-Normal Saline IV 125 mls/hr ASDIRECTED RILEY Administration - Radiology Interpretation Free Text/Narrative:: 81-year-old male presents to the ED with a 2-day history of mild headache which is generalized. Associated feeling of off balance when he tries to walk. Symptoms are that of mild vertigo without any extensive spinning sensation nausea or vomiting. Patient does have peripheral neuropathy in both lower extremities. He has been an insulin-dependent diabetic for greater than 12 years and before that on medication orally. He awoke this morning with his bed disheveled and diaphoretic. He felt much more off balance this morning but is feeling a bit better now. When he checked his blood sugar this morning it was 57. He denies any recent change in weight. He has been using more muscles like climbing ladders and painting the last few days. He states he usually does not feel hypoglycemic events until he is's blood sugar is below 40. Plan CT head to be done because of being on Plavix and aspirin. And associated headache x2 days. There is no clinical evidence of a stroke. Glycosylated hemoglobin and routine labs to be done. IV will be D5 normal saline at 125 mils per hour. - Re-Assessments/Exams Free Text/Narrative Re-Assessment/Exam: 05/08/21 08:26 CT of the head has been completed. Brain appears normal with no hemorrhage. Unremarkable white matter. No mass-effect. No ventriculomegaly. Visualized sinuses are unremarkable with no air-fluid levels. Visualized mastoid air cells are also well aerated. Bones and joints are unremarkable with no acute fracture. There is bilateral carotid artery calcification. No acute intracranial abnormality. Did well walking in the hallway and pivoted well with no signs of loss of balance. 05/08/21 08:32 both ears have been irrigated with return of a large amount of cerumen particular from the left ear. 05/08/21 09:00 Total white count is normal at 8.64. Differential shows 70.1% neutrophils and 20% lymphocytes. Hemoglobin is 13.5 with hematocrit of 40.1. MCV is mildly elevated at 96.4. Platelet count 200,000. Sodium is 140 with a potassium of 4.5. Chloride 105 with a bicarb of 29. Anion gap is 10.5. BUN is elevated at 31 with a creatinine of 1.3. GFR is 53. Glucose was 205. Calcium 8.7 with a magnesium of 2.0 liver function is normal. Troponin I is 0.051 C- reactive protein less than 0.2 total protein is slightly low at 6.2 with an albumin fraction of 3.2. 05/08/21 09:28 Hemoglobin A1c is low at 6.3. BNP was 889. 05/08/21 09:36 I have discussed the findings with the patient. It is my opinion that he should stop his glipizide at bedtime has he identifies that his blood sugar is usually around 100 at bedtime and if he takes the glipizide he wakes up with a blood sugar of 110-1 20. If he does not take it his blood sugar is around 140 which I think is a good idea since he is developing hypoglycemia during the night. Secondly am going to add Lasix 20 mg daily in the p.m. around 1400 hrs. daily due to congestive heart failure. Advised to follow-up with Dr. Adam in 7 to 10 days time Departure - Departure Time of Disposition: 09:37 Disposition: Home, Self-Care 01 Condition: Fair Clinical Impression: Hypoglycemic event due to diabetes Congestive heart failure Qualifiers: Heart failure type: unspecified Heart failure chronicity: chronic Qualified Code(s): I50.9 - Heart failure, unspecified - Discharge Information *PRESCRIPTION DRUG MONITORING PROGRAM REVIEWED*: Not Applicable *COPY OF PRESCRIPTION DRUG MONITORING REPORT IN PATIENT AUDREY: Not Applicable Prescriptions: Furosemide [Lasix] 20 mg PO DAILY #30 tab Instructions: Hypoglycemia, [id number] Referrals: PCP,None [Primary Care Provider] - Forms: ED Department Discharge Additional Instructions: Evaluation in the emergency room this morning in regards to feeling off balance with walking particularly bad this morning. The history is strongly suspect for development of a low blood sugar during the night with awakening with cold sweat and a blood sugar of 57 when you tested. Chances are he went lower than that during the night. It is therefore my suggestion that you discontinue glipizide 10 mg at bedtime. Your current glycosylated protein is 6.3 which is a bit too low and places you at high risk of hypoglycemic event which can be extremely s erious and cause seizure development particular if it occurs during the night when you are sleeping. Second problem identified was a lot of earwax in the left ear which was irrigated out. This may be contributed to the feeling of being off balance. I suspect most of the symptoms are secondary to low blood sugar. Suggest increasing your Lasix to 20 mg in the afternoon between 2 and 3 PM daily in addition to the 40 mg of Lasix or furosemide that you take in the morning. A prescription has been written for this medication. Suggest follow- up with your personal care physician in the next 7 to 10 days time to see how you are getting along with your congestive heart failure and treatment plan. Sepsis Event Note (ED) - Focused Exam Vital Signs: Vital Signs Temp Pulse 05/08/21 07:38 36.4 C 66 - My Orders Last 24 Hours: My Active Orders 05/08/21 07:45 Dextrose 5%-0.9% NaCl [Dextrose 5%-Normal Saline] 1,000 ml IV ASDIRECTED 05/08/21 07:50 EKG Documentation Completion [RC] STAT Ear Irrigation [RC] ASDIRECTED - Assessment/Plan Last 24 Hours: My Active Orders 05/08/21 07:45 Dextrose 5%-0.9% NaCl [Dextrose 5%-Normal Saline] 1,000 ml IV ASDIRECTED 05/08/21 07:50 EKG Documentation Completion [RC] STAT Ear Irrigation [RC] ASDIRECTED
[2021-05-08 07:40] VITALS: PULSE 66
[2021-05-08] MEDS ORDERED: Dextrose 5%-0.9% NaCl 1,000 ML IV SCH (07:45)
--- NOTE | 2021-05-08 08:43 | CT ---
Head CT Technique: Multiple axial sections through the brain were obtained. Intravenous contrast was not utilized. Reconstructed coronal and sagittal images were obtained. Comparison: No prior head CT is available, prior MRI brain of 06/04/10 is available. Findings: Ventricles along with basal cisterns and sulci over the convexities are mildly prominent. No abnormal parenchymal densities are seen. No evidence of intracranial hemorrhage. No midline shift or mass-effect is seen. Bone window settings were reviewed. Visualized paranasal sinuses and mastoid sinuses show nothing acute. Atherosclerotic calcification is seen within the carotid siphon. No acute calvarial abnormality is appreciated. Impression: 1. Mild generalized atrophy. 2. Nothing acute is appreciated on noncontrast head CT study. Diagnostic code #2
[2021-05-08 09:01] LABS: HEMOGLOBIN A1C 6.3 %
== END 2021-05-08 10:28 | disposition home or self-care (01) ==
LOC: JD.ED 07:16
DX: E11.649 Type 2 diabetes mellitus with hypoglycemia without coma (principal); I11.0 Hypertensive heart disease with heart failure; I50.9 Heart failure, unspecified; I44.0 Atrioventricular block, first degree; I25.10 Atherosclerotic heart disease of native coronary artery without angina pectoris; E78.00 Pure hypercholesterolemia, unspecified; I25.2 Old myocardial infarction; K21.9 Gastro-esophageal reflux disease without esophagitis; E11.51 Type 2 diabetes mellitus with diabetic peripheral angiopathy without gangrene; Z91.048 Other nonmedicinal substance allergy status; Z88.8 Allergy status to other drugs, medicaments and biological substances; Z91.041 Radiographic dye allergy status; Z91.013 Allergy to seafood; Z79.02 Long term (current) use of antithrombotics/antiplatelets; Z79.82 Long term (current) use of aspirin; Z79.4 Long term (current) use of insulin; Z79.899 Other long term (current) drug therapy
CPT/HCPCS: 36415; 70450; 80053; 83036; 83735; 83880; 84484; 85025; 86140; 93005; 99285; J7042; 93010; 99284

== ENCOUNTER 2022-04-22 07:46 | Day surgery (SDC) | payer MEDICARE, OTHER ==
[~2022-04-22 07:46] MED LIST changes: +Lidocaine 1%/Sod Bicarbonate in NS 8.4% 1 ML Syringe IDERM PRN; -Lidocaine 1%/Sod Bicarbonate in NS 8.4% 1 ML Syringe IV PRN; +Sodium Chloride 0.9% 10 ML Syringe FLUSH SCH
[2022-04-22] MEDS ORDERED: Lidocaine 1% 2 ML ONE (07:47)
[2022-04-22] MEDS ORDERED: Propofol 200 MG/20 ML SDV ONE ×2 (07:47)
[2022-04-22] MEDS ORDERED: Lidocaine 1% 4 ML ONE (07:49)
[2022-04-22] MEDS ORDERED: Bupivacaine 0.5% 10 ML SDV ONE ×2 (11:19→11:22)
[2022-04-22 12:52] VITALS: BP 132/61; PULSE 70
== END 2022-04-22 12:30 | disposition home or self-care (01) ==
LOC: JD.SDS 07:46
PROVIDERS: ATTEND Surgery
DX: D12.3 Benign neoplasm of transverse colon (principal); K31.89 Other diseases of stomach and duodenum; K22.89 Other specified disease of esophagus; K22.70 Barrett's esophagus without dysplasia; K44.9 Diaphragmatic hernia without obstruction or gangrene; K29.70 Gastritis, unspecified, without bleeding; K25.9 Gastric ulcer, unspecified as acute or chronic, without hemorrhage or perforation; K64.8 Other hemorrhoids; E78.00 Pure hypercholesterolemia, unspecified; I10 Essential (primary) hypertension; E11.51 Type 2 diabetes mellitus with diabetic peripheral angiopathy without gangrene; D64.9 Anemia, unspecified; E66.9 Obesity, unspecified; J44.9 Chronic obstructive pulmonary disease, unspecified; I25.2 Old myocardial infarction; H54.7 Unspecified visual loss; I25.10 Atherosclerotic heart disease of native coronary artery without angina pectoris; Z88.8 Allergy status to other drugs, medicaments and biological substances; Z91.013 Allergy to seafood; Z95.1 Presence of aortocoronary bypass graft; Z95.5 Presence of coronary angioplasty implant and graft; Z86.73 Personal history of transient ischemic attack (TIA), and cerebral infarction without residual deficits; Z98.890 Other specified postprocedural states; Z79.4 Long term (current) use of insulin; Z87.891 Personal history of nicotine dependence; Z91.041 Radiographic dye allergy status; Z91.048 Other nonmedicinal substance allergy status; Z79.51 Long term (current) use of inhaled steroids; Z79.82 Long term (current) use of aspirin; Z79.899 Other long term (current) drug therapy
CPT/HCPCS: 43239; 45380; 88305; J2704; J3490; J7120; 00813; 99100

== ENCOUNTER 2022-08-19 09:49 | Day surgery (SDC) | payer MEDICARE, OTHER ==
[2022-08-19] MEDS ORDERED: Propofol 200 MG/20 ML SDV ONE (10:48)
[2022-08-19] MEDS ORDERED: Lidocaine 1% 2 ML ONE (10:53)
[2022-08-19 13:35] VITALS: BP 150/62; PULSE 52
== END 2022-08-19 13:05 | disposition home or self-care (01) ==
LOC: JD.SDS 09:49
PROVIDERS: ATTEND Surgery
DX: K31.89 Other diseases of stomach and duodenum (principal); K31.819 Angiodysplasia of stomach and duodenum without bleeding; K29.70 Gastritis, unspecified, without bleeding; K25.9 Gastric ulcer, unspecified as acute or chronic, without hemorrhage or perforation; K31.7 Polyp of stomach and duodenum; K21.9 Gastro-esophageal reflux disease without esophagitis; I10 Essential (primary) hypertension; I25.10 Atherosclerotic heart disease of native coronary artery without angina pectoris; E78.00 Pure hypercholesterolemia, unspecified; Z95.5 Presence of coronary angioplasty implant and graft; Z79.82 Long term (current) use of aspirin; Z79.84 Long term (current) use of oral hypoglycemic drugs; Z79.899 Other long term (current) drug therapy; Z86.73 Personal history of transient ischemic attack (TIA), and cerebral infarction without residual deficits; Z79.4 Long term (current) use of insulin; Z91.041 Radiographic dye allergy status; Z88.8 Allergy status to other drugs, medicaments and biological substances; Z91.013 Allergy to seafood; Z87.891 Personal history of nicotine dependence
CPT/HCPCS: 43239; J2704; J7120; 00731; 88305; 99100

== ENCOUNTER 2023-06-07 06:08 | Day surgery (SDC) | payer MEDICARE, OTHER ==
[~2023-06-07 06:08] MED LIST changes: -Lidocaine 1%/Sod Bicarbonate in NS 8.4% 1 ML Syringe IDERM PRN
[2023-06-07] MEDS ORDERED: Lidocaine 1% 10 ML MDV ONE (06:37)
[2023-06-07] MEDS ORDERED: Bupivacaine 0.25% 10 ML SDV ONE (06:37)
[2023-06-07] MEDS ORDERED: fentaNYL 100 MCG/2 ML SDV ONE (06:53)
[2023-06-07] MEDS ORDERED: Propofol 200 MG/20 ML SDV ONE (06:53)
[2023-06-07] MEDS ORDERED: Lidocaine 1% 5 ML VIAL ONE (06:53)
[2023-06-07] MEDS ORDERED: ePHEDrine 50 MG/ML SDV ONE (07:14)
[2023-06-07 08:36] VITALS: BP 124/42; PULSE 52
== END 2023-06-07 08:28 | disposition home or self-care (01) ==
LOC: JD.SDS 06:08
PROVIDERS: ATTEND Orthopaedic Surgery
DX: G56.01 Carpal tunnel syndrome, right upper limb (principal); G56.11 Other lesions of median nerve, right upper limb; K21.9 Gastro-esophageal reflux disease without esophagitis; I10 Essential (primary) hypertension; I25.10 Atherosclerotic heart disease of native coronary artery without angina pectoris; E11.51 Type 2 diabetes mellitus with diabetic peripheral angiopathy without gangrene; Z88.8 Allergy status to other drugs, medicaments and biological substances; Z91.013 Allergy to seafood; Z91.041 Radiographic dye allergy status; Z79.4 Long term (current) use of insulin; Z79.84 Long term (current) use of oral hypoglycemic drugs; Z79.899 Other long term (current) drug therapy; Z87.891 Personal history of nicotine dependence; Z95.1 Presence of aortocoronary bypass graft
CPT/HCPCS: 01810; 82947; 99100; J2704; J3010; J3490; J7120

== ENCOUNTER 2025-04-06 00:13 | Emergency (ER) | payer MEDICARE, OTHER ==
[2025-04-06] MEDS ORDERED: Sodium Chloride 0.9% 10 ML Syringe FLUSH PRN (00:48)
[2025-04-06 01:40] LABS: BASOPHILS PERCENT AUTO 0.2 % (0.0-1.0); EOSINOPHILS ABSOLUTE AUTO 0.2 K/mm3 (0.0-0.4); EOSINOPHILS PERCENT AUTO 4.4 % (0.0-6.0); HEMATOCRIT 31.9 % (42.0-52.0); HEMOGLOBIN 10.6 gm/dl (14.0-18.0); IMMATURE GRAN ABSOLUTE AUTO 0.02 K/mm3 (0.00-0.05); IMMATURE GRAN PERCENT AUTO 0.4 % (0.0-0.4); LYMPHOCYTES ABSOLUTE AUTO 1.2 K/mm3 (1.0-4.8); LYMPHOCYTES PERCENT AUTO 21.5 % (24.0-44.0); MEAN CORPUSCULAR HEMOGLOBIN 30.9 pg (28.0-32.0); MEAN CORPUSCULAR HGB CONC 33.2 g/dl (32.0-36.0); MEAN PLATELET VOLUME 9.7 fl (9.4-12.4); MONOCYTES PERCENT AUTO 18.9 % (0.0-8.0); NEUTROPHILS PERCENT AUTO 54.6 % (41.0-71.0); PLATELET COUNT,PLT 220 K/mm3 (150-400); RED BLOOD CELL COUNT 3.43 M/mm3 (4.52-5.90); WHITE BLOOD CELL COUNT,WBC 5.49 K/mm3 (3.9-11.3)
[2025-04-06 02:11] LABS: A/G RATIO 0.9 (1-2); ALBUMIN 2.5 g/dl (3.4-5.0); ANION GAP 5.5 (5-15); BILIRUBIN TOTAL 0.7 mg/dL (0.2-1.0); BUN/CREATININE RATIO 8.1 (14-18); CALCIUM 8.2 mg/dL (8.5-10.1); CREATININE 2.1 mg/dL (0.7-1.3); EST CRCL DRUG DOSING (CG) 25.79 mL/min; MAGNESIUM 2.8 mg/dL (1.8-2.4); POTASSIUM,K 3.5 mEq/L (3.5-5.1); PROTEIN TOTAL,TP 5.4 g/dl (6.4-8.2)
[2025-04-06 03:36] VITALS: BP 104/55; PULSE 72
== END 2025-04-06 03:34 ==
LOC: JD.ED 00:13
DX: I11.0 Hypertensive heart disease with heart failure (principal); I50.9 Heart failure, unspecified; R79.89 Other specified abnormal findings of blood chemistry; N17.9 Acute kidney failure, unspecified; E78.00 Pure hypercholesterolemia, unspecified; I25.2 Old myocardial infarction; J44.9 Chronic obstructive pulmonary disease, unspecified; I25.10 Atherosclerotic heart disease of native coronary artery without angina pectoris; E11.9 Type 2 diabetes mellitus without complications; Z91.048 Other nonmedicinal substance allergy status; Z95.5 Presence of coronary angioplasty implant and graft; Z91.041 Radiographic dye allergy status; Z91.013 Allergy to seafood; Z79.01 Long term (current) use of anticoagulants; Z79.4 Long term (current) use of insulin; Z79.899 Other long term (current) drug therapy
CPT/HCPCS: 36415; 71045; 71045-26; 80053; 82550; 83605; 83690; 83735; 83880; 84484; 85025; 87040; 93005; 93010; 99285